=== PATIENT | female | born 1965 | race Two or more races ===

== ENCOUNTER 2021-05-16 09:39 | Outpatient (CLI) | payer OTHER | END 2021-05-16 10:34 | disposition home or self-care (01) | LOC: LAB 09:39 | PROVIDERS: ATTEND Internal Medicine | DX: E11.9 Type 2 diabetes mellitus without complications (principal); E03.9 Hypothyroidism, unspecified; E55.9 Vitamin D deficiency, unspecified; E78.9 Disorder of lipoprotein metabolism, unspecified; I10 Essential (primary) hypertension ==

== ENCOUNTER → 2021-12-19 09:56 | Outpatient (CLI) | payer OTHER | END | disposition home or self-care (01) | LOC: LAB 09:56 | PROVIDERS: ATTEND Internal Medicine | DX: E21.3 Hyperparathyroidism, unspecified (principal) ==

== ENCOUNTER 2022-04-02 07:21 | Outpatient (CLI) | payer OTHER | END 2022-04-02 07:25 | disposition home or self-care (01) | LOC: NUCLEAR 07:21 | PROVIDERS: ATTEND Internal Medicine | DX: E21.3 Hyperparathyroidism, unspecified (principal) | CPT/HCPCS: 78072; A9500 ==

== ENCOUNTER 2022-04-30 08:53 | Outpatient (CLI) | payer OTHER | END 2022-04-30 08:56 | disposition home or self-care (01) | LOC: SONOGRAMA 08:53 | DX: N95.0 Postmenopausal bleeding (principal); N92.6 Irregular menstruation, unspecified ==

== ENCOUNTER 2022-08-16 10:23 | Outpatient (CLI) | payer OTHER | END 2022-08-16 10:35 | disposition home or self-care (01) | LOC: LAB 10:23 | DX: E21.3 Hyperparathyroidism, unspecified (principal); I10 Essential (primary) hypertension; E11.9 Type 2 diabetes mellitus without complications; E78.00 Pure hypercholesterolemia, unspecified; D64.9 Anemia, unspecified; E55.9 Vitamin D deficiency, unspecified ==

== ENCOUNTER 2023-04-07 09:22 | Outpatient (CLI) | payer OTHER | END 2023-04-07 09:31 | disposition home or self-care (01) | LOC: MAMO-SONO 09:22 | PROVIDERS: ATTEND Internal Medicine | DX: E21.3 Hyperparathyroidism, unspecified (principal); E21.1 Secondary hyperparathyroidism, not elsewhere classified; R91.1 Solitary pulmonary nodule; J98.4 Other disorders of lung; N64.4 Mastodynia ==

== ENCOUNTER → 2024-01-07 09:00 | Outpatient (CLI) | payer OTHER | END | disposition home or self-care (01) | LOC: LAB 09:00 | PROVIDERS: ATTEND Internal Medicine | DX: M10.00 Idiopathic gout, unspecified site (principal) ==

== ENCOUNTER 2024-03-23 08:36 | Outpatient (CLI) | payer OTHER ==
[2024-03-23 09:20] LABS: PH,URINE 5.5 (5.0-8.0); URINE APPEARANCE Clear; URINE BILIRRUBIN Negative (NEGATIVE); URINE BLOOD Negative; URINE COLOR Yellow; URINE GLUCOSE Negative (NEGATIVE); URINE KETONE Negative (NEGATIVE); URINE LEUKOCYTE Trace; URINE NITRATE Negative; URINE PROTEIN Negative (NEGATIVE); URINE UROBILINOGEN 0.2 E.U./dl
[2024-03-23 09:21] LABS: HEMATOCRIT 42.2 % (36.0-45.00); HEMOGLOBIN 14.6 g/dL (12.0-15.00); MEAN CELL VOLUME 91.6 fL (80.00-100.00); MEAN CORPUSCULAR HEMOGLOBIN 31.7 pg (27.00-32.0); MEAN CORPUSCULAR HGB CONC 34.6 g/dl (32.0-36.0); PLATELET COUNT 175 K/uL (150-450); RED BLOOD COUNT 4.61 M/uL (4.00-6.00)
[2024-03-23 09:22] LABS: URINE BACTERIA 3374.1 uL (0.0-1933); URINE RBC 14.4 uL (0.0-20.8); URINE WBC 63.9 uL (0.0-23.2)
[2024-03-23 10:31] LABS: CALCIUM 9.4 mg/dL (8.5-10.1); CREATININE SERUM 0.75 mg/dL (0.55-1.02); GFR 79.37; POTASSIUM 4.18 mEq/L (3.5-5.1); TSH 0.846 uIU/mL (0.358-3.74)
== END 2024-03-23 08:37 | disposition home or self-care (01) ==
LOC: LAB 08:36
PROVIDERS: ATTEND Student in an Organized Health Care Education/Training Program
DX: E11.9 Type 2 diabetes mellitus without complications (principal); E21.0 Primary hyperparathyroidism; R79.9 Abnormal finding of blood chemistry, unspecified; R82.90 Unspecified abnormal findings in urine; I10 Essential (primary) hypertension; E03.9 Hypothyroidism, unspecified; E55.9 Vitamin D deficiency, unspecified

== ENCOUNTER 2024-03-23 09:30 | Outpatient (CLI) | payer OTHER | END 2024-03-23 09:38 | disposition home or self-care (01) | LOC: SONOGRAMA 09:30 | PROVIDERS: ATTEND Internal Medicine | DX: E04.1 Nontoxic single thyroid nodule (principal) ==

== ENCOUNTER → 2024-05-18 12:48 | Outpatient (CLI) | payer OTHER ==
[2024-05-18 13:40] LABS: HEMATOCRIT 44.6 % (36.0-45.00); HEMOGLOBIN 15.1 g/dL (12.0-15.00); MEAN CELL VOLUME 93.2 fL (80.00-100.00); MEAN CORPUSCULAR HEMOGLOBIN 31.5 pg (27.00-32.0); MEAN CORPUSCULAR HGB CONC 33.8 g/dl (32.0-36.0); PLATELET COUNT 205 K/uL (150-450); RED BLOOD COUNT 4.78 M/uL (4.00-6.00); RED CELL DISTRIBUTION WIDTH 12.7 % (11.5-14.5)
[2024-05-18 14:39] LABS: MYCOPLASMA PNEUMONIAE IGM NON REACTIVE (NO REACTIVE)
== END | disposition home or self-care (01) ==
LOC: LAB 12:48
PROVIDERS: ATTEND General Practice
DX: J11.1 Influenza due to unidentified influenza virus with other respiratory manifestations (principal); A49.3 Mycoplasma infection, unspecified site; Z20.828 Contact with and (suspected) exposure to other viral communicable diseases; R05.9 Cough, unspecified; R50.9 Fever, unspecified

== ENCOUNTER 2024-08-09 11:14 | Outpatient (CLI) | payer OTHER ==
[2024-08-09 11:59] LABS: BASO % 0.5 % (0.1-1.2); EOS # 0.06 (0.04-0.54); HEMATOCRIT 43.5 % (34.1-44.9); HEMOGLOBIN 14.6 g/dL (11.2-15.7); LYMPH # 2.01 (1.18-3.74); LYMPH % 31.9 % (19.3-53.1); MEAN CORPUSCULAR HEMOGLOBIN 30.9 pg (25.6-32.2); MONO # 0.44 (0.24-0.82); NEUT # 3.76 (1.56-6.13); NEUT % 59.4 % (34.0-71.1); PLATELET COUNT 185 K/uL (163-369); RED BLOOD COUNT 4.72 M/uL (3.93-5.22); RED CELL DISTRIBUTION WIDTH 12.3 % (11.6-14.4)
[2024-08-09 12:09] LABS: URINE APPEARANCE Clear; URINE BILIRRUBIN Negative (NEGATIVE); URINE BLOOD Negative; URINE COLOR Yellow; URINE GLUCOSE Negative (NEGATIVE); URINE KETONE Negative (NEGATIVE); URINE LEUKOCYTE Trace; URINE NITRATE Negative; URINE PROTEIN Negative (NEGATIVE); URINE UROBILINOGEN 0.2 E.U./dl
[2024-08-09 12:12] LABS: URINE BACTERIA 1870.1 uL (0.0-1933); URINE EPITHELIAL CELLS 23.2 uL (0.0-38.8); URINE RBC 11.9 uL (0.0-20.8); URINE WBC 25.6 uL (0.0-23.2)
[2024-08-09 12:14] LABS: URINE CAST 0.14 uL (0.0-1.40)
[2024-08-09 13:00] LABS: ALBUMIN 3.8 gm/dL (3.4-5.0); BILIRUBIN TOTAL 0.55 mg/dL (0.3-1.2); CALCIUM 9.2 mg/dL (8.5-10.1); CHOL HDL RATIO 4.1 (0-5.0); CREATININE SERUM 0.75 mg/dL (0.55-1.02); GFR 79.09; GLOBULINA 3.2 G/DL (2.4-3.5); POTASSIUM 4.82 mEq/L (3.5-5.1); TSH 0.555 uIU/mL (0.358-3.74)
[2024-08-09 13:48] LABS: VITAMIN D3 25 HYDROXY 54.81 ng/ml (30-120)
== END 2024-08-09 11:15 | disposition home or self-care (01) ==
LOC: LAB 11:14
DX: E55.9 Vitamin D deficiency, unspecified (principal); D51.9 Vitamin B12 deficiency anemia, unspecified; Z12.12 Encounter for screening for malignant neoplasm of rectum; R19.5 Other fecal abnormalities; I11.9 Hypertensive heart disease without heart failure; E11.9 Type 2 diabetes mellitus without complications; D64.9 Anemia, unspecified; N39.0 Urinary tract infection, site not specified; E21.3 Hyperparathyroidism, unspecified; E03.8 Other specified hypothyroidism; E78.00 Pure hypercholesterolemia, unspecified

== ENCOUNTER 2024-08-09 12:01 | Outpatient (CLI) | payer OTHER | END 2024-08-09 12:02 | disposition home or self-care (01) | LOC: MAMO-SONO 12:01 | DX: M79.671 Pain in right foot (principal); N63.10 Unspecified lump in the right breast, unspecified quadrant; N63.20 Unspecified lump in the left breast, unspecified quadrant; E21.3 Hyperparathyroidism, unspecified ==

== ENCOUNTER 2024-12-17 10:37 | Outpatient (CLI) | payer OTHER ==
[2024-12-17 11:26] LABS: BASO % 0.6 % (0.1-1.2); EOS # 0.09 (0.04-0.54); EOS % 1.2 % (0.7-7.0); LYMPH # 1.88 (1.18-3.74); LYMPH % 25.9 % (19.3-53.1); MEAN PLATELET VOLUME 9.10 fl (9.4-12.4); MONO # 0.47 (0.24-0.82); MONO % 6.5 % (4.7-12.5); NEUT # 4.74 (1.56-6.13); NEUT % 65.4 % (34.0-71.1); RED CELL DISTRIBUTION WIDTH 12.0 % (11.6-14.4)
[2024-12-17 11:29] LABS: URINE APPEARANCE Clear; URINE BILIRRUBIN Negative (NEGATIVE); URINE BLOOD Negative; URINE COLOR Yellow; URINE GLUCOSE Negative (NEGATIVE); URINE KETONE Negative (NEGATIVE); URINE LEUKOCYTE Trace; URINE NITRATE Negative; URINE PROTEIN Negative (NEGATIVE); URINE UROBILINOGEN 0.2 E.U./dl
[2024-12-17 11:33] LABS: URINE BACTERIA 2482.5 uL (0.0-1933); URINE EPITHELIAL CELLS 50.4 uL (0.0-38.8); URINE RBC 20.9 uL (0.0-20.8); URINE WBC 28.6 uL (0.0-23.2)
[2024-12-17 11:49] LABS: URINE CAST 0.14 uL (0.0-1.40)
[2024-12-17 12:21] LABS: BUN CREA RATIO 18.0 (7.0-25.0); CHOL HDL RATIO 4.1 (0-5.0); CREATININE SERUM 0.72 mg/dL (0.55-1.02); GFR 82.91; GLUCOSE FASTING 103.0 mg/dL (65-100); HDL 46.0 mg/dl (40-60); LDL 129.0 mg/dl (0-130); OSMOLALITY SERUM 287.0 MOSM/KG (275-295); TSH 0.62 uIU/mL (0.358-3.74); VLDL 15.0 (0-39)
== END 2024-12-17 10:39 | disposition home or self-care (01) ==
LOC: LAB 10:37
PROVIDERS: ATTEND Internal Medicine
DX: E03.9 Hypothyroidism, unspecified (principal); N39.0 Urinary tract infection, site not specified; E78.00 Pure hypercholesterolemia, unspecified; D64.9 Anemia, unspecified; E21.0 Primary hyperparathyroidism